=== PATIENT | male | born 1990 | race Caucasian/White ===

== ENCOUNTER 2016-11-12 08:17 | Observation (INO) | payer SELFPAY ==
[2016-11-12] MEDS ORDERED: Sodium Chloride 0.9% 1,000 ML IV ONE ×2 (08:29→09:34)
--- NOTE | 2016-11-12 08:53 | EDM.PDOC ---
ED HPI GENERAL MEDICAL PROBLEM - General Chief Complaint: Syncope Stated Complaint: Passing out Time Seen by Provider: 11/12/16 08:25 Source of Information: Reports: Patient History Limitations: Reports: No Limitations - History of Present Illness INITIAL COMMENTS - FREE TEXT/NARRATIVE: HISTORY AND PHYSICAL: History of present illness: This is a 26-year-old male presenting to the emergency room for the above- mentioned reason. As per the patient, the last 2 days now he has generally been feeling fatigued and dizzy. He tells me that it began yesterday when he would lose his balance after walking around and being on his feet for a long period of time. This morning in his hotel room he quickly got up out of his chair and passed out and fell on the floor. He is unaware of how long he was on the floor for. He does tell me that he did lose consciousness. He describes it as occurring suddenly. He denies any head trauma. He denies any current headaches. He does tell me that after the incident when he finally woke up he did initially feel confused. Currently he feels very dizzy and weak. He also tells him that he feels nauseous but he has not vomited. He denies having any cardiac or seizure history. He denies any history of diabetes. He has never had a similar incident in the past. Review of systems: As per history of present illness and below otherwise all systems reviewed and negative. Past medical history: No significant past medical history Surgical history: Tonsillectomy Social history: No reported history of drug or alcohol abuse. Family history: As per history of present illness and as reviewed below otherwise noncontributory. Physical exam: HEENT: Atraumatic, normocephalic, pupils reactive, negative for conjunctival pallor or scleral icterus, mucous membranes moist, throat clear, neck supple, nontender, trachea midline. Lungs: Clear to auscultation, breath sounds equal bilaterally, chest nontender. Heart: S1S2, regular, negative for clicks, rubs, or JVD. Abdomen: Soft, nondistended, nontender. Negative for masses or hepatosplenomegaly. Negative for costovertebral tenderness. Pelvis: Stable nontender. Genitourinary: Deferred. Rectal: Deferred. Extremities: Atraumatic, negative for cords or calf pain. Neurovascular unremarkable. Neuro: Awake, alert, oriented. Cranial nerves II through XII unremarkable. Cerebellum unremarkable. Motor and sensory unremarkable throughout. Exam nonfocal. Diagnostics: EKG CBC CMP Troponin CK-MB Orthostatic vital signs Chest x-ray Urinalysis Drug screen Head CT without contrast Therapeutics: IV normal saline bolus Impression: #1. Rhabdomyolysis Plan: Admit to observation with accepting physician Dr. Oneill. Definitive disposition and diagnosis as appropriate pending reevaluation and review of above. Headache Pain Score (Numeric/FACES): 5 - Related Data Allergies Allergy/AdvReac Type Severity Reaction Status Date / Time Penicillins Allergy Other Verified 11/12/16 08:27 Home Meds: Home Meds . [No Known Home Meds] 11/12/16 [History] Past Medical History - Past Health History Medical/Surgical History: Denies Medical/Surgical History Social & Family History - Tobacco Use Smoking Status *Q: Current Every Day Smoker Years of Tobacco use: 13 Packs/Tins Daily: 0.5 - Caffeine Use Caffeine Use: Reports: None - Recreational Drug Use Recreational Drug Use: No ED ROS GENERAL - Review of Systems Review Of Systems: See Below - Physical Exam Exam: See Below Course - Vital Signs Last Recorded V/S: Last Vital Signs Temp 36.1 C 11/12/16 08:29 Pulse 70 11/12/16 08:29 Resp 16 11/12/16 08:29 BP 129/76 11/12/16 08:29 Pulse Ox 97 11/12/16 08:29 Orthostatic Blood Pressure [ 138/78 Standing] Orthostatic Blood Pressure [ 137/87 Sitting] Orthostatic Blood Pressure [ 125/78 Supine] - Orders/Labs/Meds Orders: Active Orders 24 hr Category Date Time Status Admission Status [Patient Status] [ADT] Stat ADT 11/12/16 10:22 Ordered EKG 12 Lead [EKG Documentation Completion] [RC] STAT Care 11/12/16 08:45 Active Orthostatic Vital Signs [RC] ASDIRECTED Care 11/12/16 08:32 Active Head wo Cont [CT] Stat Exams 11/12/16 09:03 Taken DRUG SCREEN, URINE [URCHEM] Stat Lab 11/12/16 08:33 Uncollected UA W/MICROSCOPIC [URIN] Stat Lab 11/12/16 08:29 Uncollected Sodium Chloride 0.9% [Normal Saline] 1,000 ml Med 11/12/16 09:34 Active IV STAT Medication Orders Sodium Chloride (Normal Saline) 1,000 mls @ 999 mls/hr IV STAT ONE Stop: 11/12/16 10:34 Last Admin: 11/12/16 09:43 Dose: 999 mls/hr Labs: Laboratory Tests 11/12/16 11/12/16 11/12/16 Range/Units 08:20 08:20 08:20 WBC 7.59 (4.0-11.0) K/uL RBC 4.86 (4.50-5.90) M/uL Hgb 15.7 (13.0-17.0) g/dL Hct 44.4 (38.0-50.0) % MCV 91.4 (80.0-98.0) fL MCH 32.3 H (27.0-32.0) pg MCHC 35.4 (31.0-37.0) g/dL RDW Std Deviation 42.5 (28.0-62.0) fl RDW Coeff of Jagdish 13 (11.0-15.0) % Plt Count 210 (150-400) K/uL MPV 10.00 (7.40-12.00) fL Neut % (Auto) 42.3 L (48.0-80.0) % Lymph % (Auto) 35.7 (16.0-40.0) % Mcpherson % (Auto) 14.2 (0.0-15.0) % Eos % (Auto) 7.0 (0.0-7.0) % Baso % (Auto) 0.8 (0.0-1.5) % Neut # (Auto) 3.2 (1.4-5.7) K/uL Lymph # (Auto) 2.7 H (0.6-2.4) K/uL Mcpherson # (Auto) 1.1 H (0.0-0.8) K/uL Eos # (Auto) 0.5 (0.0-0.7) K/uL Baso # (Auto) 0.1 (0.0-0.1) K/uL Nucleated RBC % 0.0 /100WBC Nucleated RBCs # 0 K/uL Sodium 139 (136-146) mmol/L Potassium 4.0 (3.5-5.1) mmol/L Chloride 108 (98-110) mmol/L Carbon Dioxide 22 (21-31) mmol/L BUN 15 (6.0-23.0) mg/dL Creatinine 0.8 (0.6-1.5) mg/dL Est Cr Clr Drug Dosing 152.24 mL/min Estimated GFR (MDRD) > 60.0 ml/min Glucose 96 (60-110) mg/dL Calcium 9.0 (8.8-10.8) mg/dL Total Bilirubin 0.7 (0.1-1.5) mg/dL AST 32 (5-40) IU/L ALT 36 (8-54) IU/L Alkaline Phosphatase 69 (40-150) Creatine Kinase 327 H (9-236) IU/L CK-MB (CK-2) 5.6 (0-6.6) ng/ml Troponin I < 0.10 (0.0-0.29) NG/ML Total Protein 7.2 (6.0-8.0) g/dL Albumin 4.2 (3.5-5.0) g/dL Globulin 3.0 (2.0-3.5) g/dL Albumin/Globulin Ratio 1.4 (1.3-2.8) Meds: Medications Generic Name Dose Route Start Last Admin Trade Name Freq PRN Reason Stop Dose Admin Sodium Chloride 1,000 mls @ 999 mls/hr 11/12/16 09:34 11/12/16 09:43 Normal Saline IV 11/12/16 10:34 999 mls/hr STAT ONE Administration Discontinued Medications Generic Name Dose Route Start Last Admin Trade Name Freq PRN Reason Stop Dose Admin Sodium Chloride 1,000 mls @ 999 mls/hr 11/12/16 08:29 11/12/16 08:43 Normal Saline IV 11/12/16 09:29 999 mls/hr STAT ONE Administration Departure - Departure Time of Disposition: 10:25 Disposition: Refer to Observation Condition: Fair Clinical Impression: Rhabdomyolysis - Discharge Information Forms: ED Department Discharge - My Orders Last 24 Hours: My Active Orders 11/12/16 08:45 EKG 12 Lead [EKG Documentation Completion] [RC] STAT 11/12/16 09:03 Head wo Cont [CT] Stat 11/12/16 09:34 Sodium Chloride 0.9% [Normal Saline] 1,000 ml IV STAT 11/12/16 10:22 Admission Status [Patient Status] [ADT] Stat - Assessment/Plan Last 24 Hours: My Active Orders 11/12/16 08:45 EKG 12 Lead [EKG Documentation Completion] [RC] STAT 11/12/16 09:03 Head wo Cont [CT] Stat 11/12/16 09:34 Sodium Chloride 0.9% [Normal Saline] 1,000 ml IV STAT 11/12/16 10:22 Admission Status [Patient Status] [ADT] Stat
[2016-11-12 09:00] LABS: CHLORIDE,CL 108 mmol/L (98-110); SODIUM,NA 139 mmol/L (136-146)
--- NOTE | 2016-11-12 09:24 | CR ---
EXAM DATE: 11/12/16 PATIENT'S AGE: 26 Patient: KIMBERLY AYALA Facility: [place], [place] Site . Site : 1990 Study: XRay Chest [id number]/[id number] 9:17:34 AM Ordering Physician: Alvarez Brandt Final Report: INDICATION: Pain/shortness of breath. Dizziness. INDICATION: Pain. Shortness of breath. TECHNIQUE: Chest 1 view. COMPARISON: None FINDINGS: Cardiovascular and mediastinum: Heart size and vasculature are normal in caliber and appearance. Mediastinum is within normal limits. Lungs and pleural space: Lungs are clear. No sign of infiltrate or mass. No sign of pleural effusion. No pneumothorax. Bones and soft tissues: No significant findings. IMPRESSION: Unremarkable chest. Dictated by Pramod Nguyen MD @ 11/12/2016 9:21:44 AM Dictated by: Pramod Nguyen MD @ 11/12/2016 09:21:52 (Electronic Signature) Report Signed by Proxy. [facility]
[2016-11-12] MEDS: Sodium Chloride 0.9% 1,000 ML IV SCH ×3 (10:33→22:25)
--- NOTE | 2016-11-12 10:53 | CT ---
EXAM DATE: 11/12/16 PATIENT'S AGE: 26 Patient: KIMBERLY AYALA Facility: [place], [place] Site . Site : 1989 Study: CT Head [id number]/8/2017 9:36:55 AM Ordering Physician: Alvarez Brandt Final Report: INDICATION: dizziness INDICATION: Dizziness. TECHNIQUE: CT head without contrast. COMPARISON: None FINDINGS: CSF spaces: Within normal limits for age. Brain parenchyma: The jurado-white differentiation is normal. No sign of mass, hemorrhage, or midline shift. Skull base and calvarium: The mastoid air cells are clear. The visualized orbits are grossly unremarkable. No skull fractures. There is mucosal thickening present in the paranasal sinuses, best seen in the frontal sinus and ethmoidal air cells. IMPRESSION: There is no acute intracranial hemorrhage, shift of midline structures, or mass effect. Dictated by Pramod Nguyen MD @ 11/12/2016 10:08:00 AM Dictated by: Pramod Nguyen MD @ 11/12/2016 10:08:07 (Electronic Signature) Report Signed by Proxy. [facility]
[2016-11-12] MEDS ORDERED: Acetaminophen 325 MG Tab PO PRN (11:04)
[2016-11-12] MEDS ORDERED: Ondansetron 4 MG/2 ML SDV IVPUSH PRN (11:04)
--- NOTE | 2016-11-12 11:08 | PCM.HP ---
H&P History of Present Illness - General Date of Service: 11/12/16 Admit Problem/Dx: Admission Diagnosis/Problem Admission Diagnosis/Problem Dizziness, syncope Source of Information: Patient History Limitations: Reports: No Limitations - History of Present Illness Initial Comments - Free Text/Narative: This 26 year old otherwise healthy male presented to the ED today with concerns of dizziness, nausea and passing out. He reports yesterday he started feeling very dizzy when he would stand up or move his head. He reports the dizziness is much better when he lies still and doesn't move his head. It is worse when moving his head to the R. He confirms some sinus congestion and pressure, no sore throat, no ear pain, no hearing changes. No chest pain, palpitations, SOB, abdominal pain, urinary symptoms, or abnormal bowel movements. He does report he has not been drinking enough water due to demands of job and noted he only voided yesterday x2 and did not need to void this morning upon waking up. He does smoke 1/2 cigarettes per day, occasional alcohol use, and no recreational drug use. In the ED WBC 7,590, BMP WNL, CPK 327. Orthostatic BPs were WNL, but did have a BP measured at 97/52. Head CT negative. CXR negative. He was given 2 l bolus in the ED and IVFs continued to the floor. He will be admitted on observation for dehydration and suspected BPPV or an inner ear dysfunction secondary to sinusitis. Headache Pain Score (Numeric/FACES): 5 - Related Data Allergies/Adverse Reactions: Allergies Allergy/AdvReac Type Severity Reaction Status Date / Time Penicillins Allergy Other Verified 11/12/16 08:27 Home Medications: Home Meds . [No Known Home Meds] 11/12/16 [History] Past Medical History - Past Health History Medical/Surgical History: Denies Medical/Surgical History Cardiovascular History: Reports: None. Denies: Blood Clots/VTE/DVT, CAD, Hypertension, MD Respiratory History: Reports: None. Denies: Asthma, COPD, PE Gastrointestinal History: Reports: None. Denies: GERD, GI Bleed Genitourinary History: Reports: Renal Calculus. Denies: Acute Renal Failure, Chronic Renal Insuffiency Musculoskeletal History: Reports: None Endocrine/Metabolic History: Reports: None. Denies: Diabetes, Type II - Past Surgical History GI Surgical History: Reports: Appendectomy Male Surgical History: Reports: Vasectomy Social & Family History - Tobacco Use Smoking Status *Q: Current Every Day Smoker Years of Tobacco use: 13 Packs/Tins Daily: 0.5 - Caffeine Use Caffeine Use: Reports: None - Recreational Drug Use Recreational Drug Use: No - Living Situation & Occupation Living situation: Reports: Occupation: Employed Social History Comment: Family back in [place] but plan on moving up here H&P Review of Systems - Review of Systems: Review Of Systems: See Below General: Reports: No Symptoms. Denies: Fever, Chills, Weakness HEENT: Reports: Headaches, Post Nasal Drip, Sinus Congestion, Vertigo. Denies: Ear Pain, Eye Pain, Hearing Changes, Sore Throat Pulmonary: Reports: No Symptoms. Denies: Shortness of Breath Cardiovascular: Reports: No Symptoms. Denies: Chest Pain, Palpitations Gastrointestinal: Reports: Nausea. Denies: Abdominal Pain, Black Stool, Bloody Stool, Vomiting Genitourinary: Reports: No Symptoms. Denies: Dysuria, Frequency, Burning, Pain Musculoskeletal: Denies: Neck Pain, Shoulder Pain Skin: Reports: No Symptoms Psychiatric: Reports: No Symptoms Neurological: Reports: No Symptoms Hematologic/Lymphatic: Reports: No Symptoms Immunologic: Reports: No Symptoms Exam - Exam Exam: See Below - Vital Signs Vital Signs: Last Vital Signs Temp 96.8 F 11/12/16 10:45 Pulse 63 11/12/16 10:45 Resp 20 11/12/16 10:45 BP 97/52 L 11/12/16 10:45 Pulse Ox 97 11/12/16 10:45 Weight: 126.552 kg - Exam General: Alert, Oriented, Cooperative HEENT: Conjunctiva Clear, Mucosa Moist & [place], Nares Patent, Posterior Pharynx Clear, Pupils Equal, Pupils Reactive, TMs Clear, Other (some maxillary sinus pressure not necessarily pain to palpation. Nystagmus noted when head to R during Theo hallpike , scant dizziness to L but no nystagmus. Increased dizziness and nausea with R) Neck: Supple, Trachea Midline, Full Range of Motion, Other (no nuchal rigidity) . No: Lymphadenopathy Lungs: Clear to Auscultation, Normal Respiratory Effort Cardiovascular: Regular Rate, Regular Rhythm, Normal S1, Normal S2. No: Irregular Rhythm, Systolic Murmur GI/Abdominal Exam: Normal Bowel Sounds, Soft, Non-Tender, No Organomegaly, No Distention, No Abnormal Bruit, No Mass, Pelvis Stable Extremities: Normal Inspection, Normal Range of Motion, Non-Tender, No Pedal Edema, Normal Capillary Refill Skin: Warm, Dry, Intact Neuro Extensive - Mental Status: Alert, Oriented x3, Normal Mood/Affect, Normal Cognition Neuro Extensive - Motor, Sensory, Reflexes: CN II-XII Intact, Normal Gait, Normal Reflexes Psychiatric: Alert, Normal Affect, Normal Mood - Patient Data Result Diagrams: 11/12/16 08:20 11/12/16 08:20 *Q Meaningful Use (ADM) - VTE *Q VTE Criteria *Q: - Stroke *Q Stroke Criteria *Q: - AMI *Q AMI Criteria *Q: - Problem List (1) Dizziness SNOMED Code(s): 644695397, 151565343 ICD Code: R42 - DIZZINESS AND GIDDINESS Status: Acute Current Visit: Yes (2) Dehydration SNOMED Code(s): 12625412 ICD Code: E86.0 - DEHYDRATION Status: Acute Current Visit: Yes Problem List Initiated/Reviewed/Updated: Yes Orders Last 24hrs: Active Orders 24 hr Category Date Time Status Antiembolic Devices [RC] PER UNIT ROUTINE Care 11/12/16 11:05 Ordered Cardiac Monitoring [RC] . DIRECTED Care 11/12/16 11:04 Inactive Intake and Output [RC] QSHIFT Care 11/12/16 11:04 Ordered Oxygen Therapy [RC] PRN Care 11/12/16 11:04 Ordered Telemetry Monitoring [Cardiac Monitoring] [RC] . Care 11/12/16 11:07 Ordered DIRECTED Up ad Skye [RC] ASDIRECTED Care 11/12/16 11:04 Ordered VTE/DVT Education [RC] PER UNIT ROUTINE Care 11/12/16 11:04 Ordered Vital Signs [RC] Q4H Care 11/12/16 11:04 Ordered Regular Diet [DIET] Diet 11/12/16 Lunch Ordered BASIC METABOLIC PANEL,BMP [CHEM] AM Lab 11/13/16 05:11 Ordered BASIC METABOLIC PANEL,BMP [CHEM] AM Lab 11/14/16 05:11 Ordered BASIC METABOLIC PANEL,BMP [CHEM] AM Lab 11/15/16 05:11 Ordered CBC WITH AUTO DIFF [HEME] AM Lab 11/13/16 05:11 Ordered CBC WITH AUTO DIFF [HEME] AM Lab 11/14/16 05:11 Ordered CBC WITH AUTO DIFF [HEME] AM Lab 11/15/16 05:11 Ordered CREATINE KINASE,CK [CHEM] AM Lab 11/13/16 05:11 Ordered CREATINE KINASE,CK [CHEM] AM Lab 11/14/16 05:11 Ordered CREATINE KINASE,CK [CHEM] AM Lab 11/15/16 05:11 Ordered DRUG SCREEN, URINE [URCHEM] Stat Lab 11/12/16 11:04 Uncollected UA W/MICROSCOPIC [URIN] Stat Lab 11/12/16 11:04 Uncollected Acetaminophen [Tylenol] Med 11/12/16 11:04 Ordered 650 mg PO Q4H PRN Ondansetron [Zofran] Med 11/12/16 11:04 Ordered 4 mg IVPUSH Q4H PRN Sodium Chloride 0.9% [Normal Saline] 1,000 ml Med 11/12/16 10:30 Active IV STAT Sequential Compression Device [OM.PC] Per Unit Routine Oth 11/12/16 11:04 Ordered Resuscitation Status Routine Resus Stat 11/12/16 11:04 Ordered Medication Orders Acetaminophen (Tylenol) 650 mg PO Q4H PRN PRN Reason: Pain Sodium Chloride (Normal Saline) 1,000 mls @ 150 mls/hr IV STAT TAMMY Last Admin: 11/12/16 10:33 Dose: 150 mls/hr Ondansetron HCl (Zofran) 4 mg IVPUSH Q4H PRN PRN Reason: Nausea Assessment/Plan Comment:: This 26 year old female admitted observation for dehydration and dizziness 1. Dizziness: suspected BPPV or inner ear dysfunction secondary to allergic sinusitis. Will consult PT to evaluate and treat. Will order Loratidine and Flonase. Do no suspected bacterial sinusitis since he is afebrile and no leukocytosis. 2. Dehydration: secondary to new job and working in heat and he has not been able to take in adequate hydration during working hours. Will continue IVFs NS 150 at this time. re-evaluate this evening. Will repeat CPK in am, but I do no feel this is significant. VTE prophylaxis: SCDs Dispo: pending improvement in am.
[2016-11-12] MEDS: Fluticasone Propionate Nasal Spray 16 GM Bottle NASBOTH SCH (12:08)
[2016-11-12] MEDS: Loratadine 10 MG Tab PO SCH (12:08)
[2016-11-13 05:37] LABS: CHLORIDE,CL 110 mmol/L (98-110); SODIUM,NA 141 mmol/L (136-146)
[2016-11-13] MEDS: Sodium Chloride 0.9% 1,000 ML IV SCH (05:39)
--- NOTE | 2016-11-13 08:16 | PCM.PN ---
- General Info Date of Service: 11/13/16 Admission Dx/Problem (Free Text): Admission Diagnosis/Problem Admission Diagnosis/Problem Dizziness Subjective Update: Continues to have some dizziness, awaiting PT evaluation. The dizziness is worse when turning head to the R. No further headache. No neck pain. C/O some tingling to R fingers, but reports this is "normal" since he thinks he hurt his shoulder a couple years ago working in [employer] with a pick ax. No chest pain or SOB. Functional Status: Reports: Pain Controlled, Tolerating Diet, Ambulating, Urinating - Review of Systems General: Reports: No Symptoms. Denies: Fever, Malaise HEENT: Reports: Other (dizziness and nausea when head turned to R. Inability to ambulate well due to severe dizziness.). Denies: Ear Pain, Eye Pain, Headaches , Sore Throat, Visual Changes Pulmonary: Reports: No Symptoms. Denies: Shortness of Breath, Cough, Sputum Cardiovascular: Reports: No Symptoms. Denies: Chest Pain, Edema Gastrointestinal: Reports: Nausea (intermittent with dizziness). Denies: Abdominal Pain Genitourinary: Reports: No Symptoms. Denies: Dysuria, Frequency, Burning Musculoskeletal: Reports: No Symptoms. Denies: Neck Pain Skin: Reports: No Symptoms Neurological: Reports: No Symptoms Psychiatric: Reports: No Symptoms - Patient Data Vitals - Most Recent: Last Vital Signs Temp 97.7 F 11/13/16 07:47 Pulse 66 11/13/16 07:47 Resp 16 11/13/16 07:47 BP 110/58 L 11/13/16 07:47 Pulse Ox 97 11/13/16 07:47 Orthostatic Blood Pressure [ 138/61 Standing] Orthostatic Blood Pressure [ 121/64 Sitting] Orthostatic Blood Pressure [ 120/61 Supine] Weight - Most Recent: 126.552 kg I&O - Last 24 Hours: Intake & Output 11/12/16 11/13/16 11/13/16 22:59 06:59 14:59 Intake Total 2074 1099 Output Total 0 2830 Balance 2074 -1731 Lab Results Last 24 Hours: Laboratory Results - last 24 hr 11/12/16 11/12/16 11/13/16 Range/Units 12:00 12:00 04:58 WBC 7.21 (4.0-11.0) K/uL RBC 4.71 (4.50-5.90) M/uL Hgb 14.8 (13.0-17.0) g/dL Hct 43.7 (38.0-50.0) % MCV 92.8 (80.0-98.0) fL MCH 31.4 (27.0-32.0) pg MCHC 33.9 (31.0-37.0) g/dL RDW Std Deviation 42.5 (28.0-62.0) fl RDW Coeff of Jagdish 13 (11.0-15.0) % Plt Count 189 (150-400) K/uL MPV 9.90 (7.40-12.00) fL Neut % (Auto) 45.1 L (48.0-80.0) % Lymph % (Auto) 36.1 (16.0-40.0) % Walsh % (Auto) 11.2 (0.0-15.0) % Eos % (Auto) 6.8 (0.0-7.0) % Baso % (Auto) 0.8 (0.0-1.5) % Neut # (Auto) 3.3 (1.4-5.7) K/uL Lymph # (Auto) 2.6 H (0.6-2.4) K/uL Walsh # (Auto) 0.8 (0.0-0.8) K/uL Eos # (Auto) 0.5 (0.0-0.7) K/uL Baso # (Auto) 0.1 (0.0-0.1) K/uL Nucleated RBC % 0.0 /100WBC Nucleated RBCs # 0 K/uL Sodium (136-146) mmol/L Potassium (3.5-5.1) mmol/L Chloride (98-110) mmol/L Carbon Dioxide (21-31) mmol/L BUN (6.0-23.0) mg/dL Creatinine (0.6-1.5) mg/dL Est Cr Clr Drug Dosing mL/min Estimated GFR (MDRD) ml/min Glucose (60-110) mg/dL Calcium (8.8-10.8) mg/dL Creatine Kinase (9-236) IU/L Urine Color YELLOW Urine Appearance CLEAR Urine pH 6.5 (5.0-8.0) Ur Specific [place] 1.010 (1.001-1.035) Urine Protein NEGATIVE (NEGATIVE) mg/dL Urine Glucose (UA) NEGATIVE (NEGATIVE) mg/dL Urine Ketones NEGATIVE (NEGATIVE) mg/dL Urine Occult Blood NEGATIVE (NEGATIVE) Urine Nitrite NEGATIVE (NEGATIVE) Urine Bilirubin NEGATIVE (NEGATIVE) Urine Urobilinogen 0.2 (<2.0) EU/dL Ur Leukocyte Esterase NEGATIVE (NEGATIVE) Urine RBC NONE SEEN (0-2/HPF) Urine WBC 0-1 (0-5/HPF) Ur Epithelial Cells RARE (NONE-FEW) Urine Bacteria RARE (NEGATIVE) Urine Opiates Screen NEGATIVE (NEGATIVE) Ur Oxycodone Screen NEGATIVE (NEGATIVE) Urine Methadone Screen NEGATIVE (NEGATIVE) Ur Barbiturates Screen NEGATIVE (NEGATIVE) Ur Phencyclidine Scrn NEGATIVE (NEGATIVE) Ur Amphetamine Screen NEGATIVE (NEGATIVE) U Methamphetamines Scrn NEGATIVE (NEGATIVE) U Benzodiazepines Scrn NEGATIVE (NEGATIVE) U Cocaine Metab Screen NEGATIVE (NEGATIVE) U Marijuana (THC) Screen NEGATIVE (NEGATIVE) 11/13/16 Range/Units 04:58 WBC (4.0-11.0) K/uL RBC (4.50-5.90) M/uL Hgb (13.0-17.0) g/dL Hct (38.0-50.0) % MCV (80.0-98.0) fL MCH (27.0-32.0) pg MCHC (31.0-37.0) g/dL RDW Std Deviation (28.0-62.0) fl RDW Coeff of Jagdish (11.0-15.0) % Plt Count (150-400) K/uL MPV (7.40-12.00) fL Neut % (Auto) (48.0-80.0) % Lymph % (Auto) (16.0-40.0) % Walsh % (Auto) (0.0-15.0) % Eos % (Auto) (0.0-7.0) % Baso % (Auto) (0.0-1.5) % Neut # (Auto) (1.4-5.7) K/uL Lymph # (Auto) (0.6-2.4) K/uL Walsh # (Auto) (0.0-0.8) K/uL Eos # (Auto) (0.0-0.7) K/uL Baso # (Auto) (0.0-0.1) K/uL Nucleated RBC % /100WBC Nucleated RBCs # K/uL Sodium 141 (136-146) mmol/L Potassium 4.3 (3.5-5.1) mmol/L Chloride 110 (98-110) mmol/L Carbon Dioxide 26 (21-31) mmol/L BUN 12 (6.0-23.0) mg/dL Creatinine 0.8 (0.6-1.5) mg/dL Est Cr Clr Drug Dosing 156.75 mL/min Estimated GFR (MDRD) > 60.0 ml/min Glucose 95 (60-110) mg/dL Calcium 8.9 (8.8-10.8) mg/dL Creatine Kinase 163 (9-236) IU/L Urine Color Urine Appearance Urine pH (5.0-8.0) Ur Specific [place] (1.001-1.035) Urine Protein (NEGATIVE) mg/dL Urine Glucose (UA) (NEGATIVE) mg/dL Urine Ketones (NEGATIVE) mg/dL Urine Occult Blood (NEGATIVE) Urine Nitrite (NEGATIVE) Urine Bilirubin (NEGATIVE) Urine Urobilinogen (<2.0) EU/dL Ur Leukocyte Esterase (NEGATIVE) Urine RBC (0-2/HPF) Urine WBC (0-5/HPF) Ur Epithelial Cells (NONE-FEW) Urine Bacteria (NEGATIVE) Urine Opiates Screen (NEGATIVE) Ur Oxycodone Screen (NEGATIVE) Urine Methadone Screen (NEGATIVE) Ur Barbiturates Screen (NEGATIVE) Ur Phencyclidine Scrn (NEGATIVE) Ur Amphetamine Screen (NEGATIVE) U Methamphetamines Scrn (NEGATIVE) U Benzodiazepines Scrn (NEGATIVE) U Cocaine Metab Screen (NEGATIVE) U Marijuana (THC) Screen (NEGATIVE) Med Orders - Current: Current Medications Acetaminophen (Tylenol) 650 mg PO Q4H PRN PRN Reason: Pain Last Admin: 11/12/16 11:18 Dose: 650 mg Fluticasone Propionate (Flonase) 0 gm NASBOTH DAILY [facility] Last Admin: 11/12/16 12:08 Dose: 1 spray Sodium Chloride (Normal Saline) 1,000 mls @ 150 mls/hr IV STAT TAMMY Last Admin: 11/13/16 05:39 Dose: 150 mls/hr Loratadine (Claritin) 10 mg PO DAILY TAMMY Last Admin: 11/12/16 12:08 Dose: 10 mg Ondansetron HCl (Zofran) 4 mg IVPUSH Q4H PRN PRN Reason: Nausea Discontinued Medications Sodium Chloride (Normal Saline) 1,000 mls @ 999 mls/hr IV STAT ONE Stop: 11/12/16 09:29 Last Admin: 11/12/16 08:43 Dose: 999 mls/hr Sodium Chloride (Normal Saline) 1,000 mls @ 999 mls/hr IV STAT ONE Stop: 11/12/16 10:34 Last Admin: 11/12/16 09:43 Dose: 999 mls/hr - Exam General: Alert, Oriented, Cooperative, No Acute Distress HEENT: Pupils Equal, Pupils Reactive, Other (holds head very still and with any movement to right gets very dizzy) Neck: Supple, Trachea Midline, No JVD. No: Lymphadenopathy Lungs: Clear to Auscultation, Normal Respiratory Effort Cardiovascular: Regular Rate, Regular Rhythm Extremities: Normal Inspection, Normal Range of Motion, Non-Tender, No Pedal Edema, Normal Capillary Refill Neurological: No New Focal Deficit Psy/Mental Status: Alert, Normal Affect, Normal Mood - Problem List & Annotations (1) Dizziness SNOMED Code(s): 259763560, 755884245 Code(s): R42 - DIZZINESS AND GIDDINESS Status: Acute Current Visit: Yes (2) Dehydration SNOMED Code(s): 32720214 Code(s): E86.0 - DEHYDRATION Status: Acute Current Visit: Yes - Problem List Review Problem List Initiated/Reviewed/Updated: Yes - My Orders Last 24 Hours: My Active Orders 11/12/16 11:04 Cardiac Monitoring [RC] . DIRECTED Intake and Output [RC] QSHIFT Oxygen Therapy [RC] PRN Up ad Skye [RC] ASDIRECTED Vital Signs [RC] Q4H Acetaminophen [Tylenol] 650 mg PO Q4H PRN Ondansetron [Zofran] 4 mg IVPUSH Q4H PRN Sequential Compression Device [OM.PC] Per Unit Routine Resuscitation Status Routine 11/12/16 11:05 Antiembolic Devices [RC] Q12H 11/12/16 11:07 Telemetry Monitoring [Cardiac Monitoring] [RC] Q8H 11/12/16 11:36 Consult to Physical Therapy [PT Evaluation and Treatment] [CONS] Routine 11/12/16 11:45 Fluticasone Propionate [Flonase] 0 gm NASBOTH DAILY Loratadine [Claritin] 10 mg PO DAILY 11/12/16 Lunch Regular Diet [DIET] 11/14/16 05:11 BASIC METABOLIC PANEL,BMP [CHEM] AM CBC WITH AUTO DIFF [HEME] AM CREATINE KINASE,CK [CHEM] AM 11/15/16 05:11 BASIC METABOLIC PANEL,BMP [CHEM] AM CBC WITH AUTO DIFF [HEME] AM CREATINE KINASE,CK [CHEM] AM - Plan Plan:: This 26 year old female admitted observation for dehydration and dizziness 1. Dizziness: suspected BPPV or inner ear dysfunction secondary to allergic sinusitis. Still awaiting PT to evaluate and treat. Continue Loratidine and Flonase. If no significant improvement after PT evaluation and treatment, will obtain brain MRI. 2. Dehydration: Resolved. Will stop IVFs today. Encourage good po intake. VTE prophylaxis: SCDs Dispo: pending PT evaluation.
[2016-11-13] MEDS: Fluticasone Propionate Nasal Spray 16 GM Bottle NASBOTH SCH (09:18)
[2016-11-13] MEDS: Loratadine 10 MG Tab PO SCH (09:18)
[2016-11-13] MEDS: Meclizine 25 MG Tab PO PRN (20:23)
[2016-11-14 05:23] LABS: CHLORIDE,CL 109 mmol/L (98-110); SODIUM,NA 140 mmol/L (136-146)
[2016-11-14] MEDS: Fluticasone Propionate Nasal Spray 16 GM Bottle NASBOTH SCH (08:16)
[2016-11-14] MEDS: Loratadine 10 MG Tab PO SCH (08:16)
[2016-11-14] MEDS: Meclizine 25 MG Tab PO PRN (10:42)
--- NOTE | 2016-11-14 11:11 | PCM.PN ---
- General Info Date of Service: 11/14/16 Admission Dx/Problem (Free Text): Admission Diagnosis/Problem Admission Diagnosis/Problem Dizziness Subjective Update: Doing a little better this morning. Dizziness continues when turning head to the R, has improved very slightly with PT. Denies any other symptoms, no tinnitus, or hearing loss. No chest pain or SOB. Functional Status: Reports: Pain Controlled, Tolerating Diet, Ambulating, Urinating - Review of Systems General: Reports: No Symptoms. Denies: Fever, Weakness, Fatigue HEENT: Reports: Sinus Congestion (mild). Denies: Ear Pain, Headaches, Rhinitis , Visual Changes Pulmonary: Reports: No Symptoms. Denies: Shortness of Breath Cardiovascular: Denies: No Symptoms, Chest Pain Gastrointestinal: Reports: No Symptoms. Denies: Abdominal Pain, Nausea, Vomiting Genitourinary: Reports: No Symptoms. Denies: Dysuria, Frequency, Burning Musculoskeletal: Reports: No Symptoms Skin: Reports: No Symptoms Neurological: Reports: No Symptoms Psychiatric: Reports: No Symptoms - Patient Data Vitals - Most Recent: Last Vital Signs Temp 97.4 F 11/14/16 08:00 Pulse 51 L 11/14/16 04:00 Resp 20 11/14/16 08:00 BP 100/51 L 11/14/16 08:00 Pulse Ox 97 11/14/16 08:00 Orthostatic Blood Pressure [ 128/78 Standing] Orthostatic Blood Pressure [ 114/69 Sitting] Orthostatic Blood Pressure [ 108/70 Supine] Weight - Most Recent: 126.552 kg I&O - Last 24 Hours: Intake & Output 11/13/16 11/14/16 11/14/16 22:59 06:59 14:59 Intake Total 1300 400 Output Total 2050 1600 Balance -750 -1200 Lab Results Last 24 Hours: Laboratory Results - last 24 hr 11/14/16 11/14/16 Range/Units 04:45 04:45 WBC 7.95 (4.0-11.0) K/uL RBC 4.91 (4.50-5.90) M/uL Hgb 15.8 (13.0-17.0) g/dL Hct 45.2 (38.0-50.0) % MCV 92.1 (80.0-98.0) fL MCH 32.2 H (27.0-32.0) pg MCHC 35.0 (31.0-37.0) g/dL RDW Std Deviation 42.3 (28.0-62.0) fl RDW Coeff of Jagdish 13 (11.0-15.0) % Plt Count 201 (150-400) K/uL MPV 10.10 (7.40-12.00) fL Neut % (Auto) 42.2 L (48.0-80.0) % Lymph % (Auto) 40.5 H (16.0-40.0) % [place] % (Auto) 11.1 (0.0-15.0) % Eos % (Auto) 5.4 (0.0-7.0) % Baso % (Auto) 0.8 (0.0-1.5) % Neut # (Auto) 3.4 (1.4-5.7) K/uL Lymph # (Auto) 3.2 H (0.6-2.4) K/uL [place] # (Auto) 0.9 H (0.0-0.8) K/uL Eos # (Auto) 0.4 (0.0-0.7) K/uL Baso # (Auto) 0.1 (0.0-0.1) K/uL Nucleated RBC % 0.0 /100WBC Nucleated RBCs # 0 K/uL Sodium 140 (136-146) mmol/L Potassium 4.5 (3.5-5.1) mmol/L Chloride 109 (98-110) mmol/L Carbon Dioxide 23 (21-31) mmol/L BUN 17 (6.0-23.0) mg/dL Creatinine 0.8 (0.6-1.5) mg/dL Est Cr Clr Drug Dosing 156.75 mL/min Estimated GFR (MDRD) > 60.0 ml/min Glucose 91 (60-110) mg/dL Calcium 9.2 (8.8-10.8) mg/dL Med Orders - Current: Current Medications Acetaminophen (Tylenol) 650 mg PO Q4H PRN PRN Reason: Pain Last Admin: 11/12/16 11:18 Dose: 650 mg Fluticasone Propionate (Flonase) 0 gm NASBOTH DAILY [facility] Last Admin: 11/14/16 08:16 Dose: 2 spray Loratadine (Claritin) 10 mg PO DAILY [facility] Last Admin: 11/14/16 08:16 Dose: 10 mg Meclizine HCl (Antivert) 25 mg PO Q6H PRN PRN Reason: Dizziness Last Admin: 11/14/16 10:42 Dose: 25 mg Ondansetron HCl (Zofran) 4 mg IVPUSH Q4H PRN PRN Reason: Nausea Discontinued Medications Sodium Chloride (Normal Saline) 1,000 mls @ 999 mls/hr IV STAT ONE Stop: 11/12/16 09:29 Last Admin: 11/12/16 08:43 Dose: 999 mls/hr Sodium Chloride (Normal Saline) 1,000 mls @ 999 mls/hr IV STAT ONE Stop: 11/12/16 10:34 Last Admin: 11/12/16 09:43 Dose: 999 mls/hr Sodium Chloride (Normal Saline) 1,000 mls @ 150 mls/hr IV STAT [facility] Last Admin: 11/13/16 05:39 Dose: 150 mls/hr - Exam General: Alert, Oriented, Cooperative, No Acute Distress HEENT: Pupils Equal, Pupils Reactive Neck: Supple, Trachea Midline Lungs: Clear to Auscultation, Normal Respiratory Effort Cardiovascular: Regular Rate, Regular Rhythm GI/Abdominal Exam: Normal Bowel Sounds, Soft, Non-Tender, No Organomegaly, No Distention, No Abnormal Bruit, No Mass, Pelvis Stable Extremities: Normal Inspection, Normal Range of Motion, Non-Tender, No Pedal Edema, Normal Capillary Refill Skin: Warm, Dry, Intact Neurological: No New Focal Deficit Psy/Mental Status: Alert, Normal Affect, Normal Mood - Problem List & Annotations (1) Dizziness SNOMED Code(s): 480967888, 866460376 Code(s): R42 - DIZZINESS AND GIDDINESS Status: Acute Current Visit: Yes (2) Dehydration SNOMED Code(s): 20659467 Code(s): E86.0 - DEHYDRATION Status: Acute Current Visit: Yes - Problem List Review Problem List Initiated/Reviewed/Updated: Yes - My Orders Last 24 Hours: My Active Orders 11/13/16 15:03 Communication Order [RC] PRN Meclizine [Antivert] 25 mg PO Q6H PRN 11/15/16 05:11 BASIC METABOLIC PANEL,BMP [CHEM] AM CBC WITH AUTO DIFF [HEME] AM - Plan Plan:: This 26 year old female admitted observation for dehydration and dizziness 1. Dizziness: Likely vestibular neuritis. Continue Loratidine and Flonase. Small improvement with PT and bhavna maneuver. Meclizine ordered PRN. Will trial this and monitor effectiveness. Consulted Neurology,Dr. Mccollum for any further recommendations, she recommends addition of steroids and taper. Along with continuing PT. VTE prophylaxis: SCDs Dispo: pending Neurology consult, likely discharge in am.
[2016-11-14] MEDS: predniSONE 20 MG Tab PO SCH (12:27)
[2016-11-14] MEDS: Omeprazole 20 MG Cap.CR PO SCH (12:27)
[2016-11-14] MEDS: Meclizine 25 MG Tab PO SCH ×2 (17:39→22:13)
[2016-11-15] MEDS: Meclizine 25 MG Tab PO SCH ×2 (04:48→12:46)
[2016-11-15 05:28] LABS: CHLORIDE,CL 108 mmol/L (98-110); SODIUM,NA 140 mmol/L (136-146)
[2016-11-15 07:56] VITALS: BP 117/61
[2016-11-15] MEDS: predniSONE 20 MG Tab PO SCH (08:37)
[2016-11-15] MEDS: Loratadine 10 MG Tab PO SCH (08:37)
[2016-11-15] MEDS: Omeprazole 20 MG Cap.CR PO SCH (08:37)
[2016-11-15] MEDS: Fluticasone Propionate Nasal Spray 16 GM Bottle NASBOTH SCH (08:38)
--- NOTE | 2016-11-15 09:34 | PCM.DCSUM1 ---
Discharge Summary - Hospital Course Brief History: This 26 year old otherwise healthy male presented to the ED 2016 with concerns of dizziness, nausea and passing out. He reports yesterday he started feeling very dizzy when he would stand up or move his head. He reports the dizziness is much better when he lies still and doesn't move his head. It is worse when moving his head to the R. He confirms some sinus congestion and pressure, no sore throat, no ear pain, no hearing changes. No chest pain, palpitations, SOB, abdominal pain, urinary symptoms, or abnormal bowel movements. He does report he has not been drinking enough water due to demands of job and noted he only voided yesterday x2 and did not need to void this morning upon waking up. He does smoke 1/2 cigarettes per day, occasional alcohol use, and no recreational drug use. In the ED WBC 7,590, BMP WNL, CPK 327. Orthostatic BPs were WNL, but did have a BP measured at 97/52. Head CT negative. CXR negative. He was given 2 l bolus in the ED and IVFs continued to the floor. He was admitted for observation for dehydration and suspected BPPV or an inner ear dysfunction. - Discharge Data Discharge Date: 11/15/16 Discharge Disposition: Home, Self-Care 01 Condition: Good - Discharge Diagnosis/Problem(s) (1) Dizziness SNOMED Code(s): 965984777, 368360183 ICD Code: R42 - DIZZINESS AND GIDDINESS Status: Acute Current Visit: Yes (2) Vestibular neuritis SNOMED Code(s): 613840359 ICD Code: H81.20 - VESTIBULAR NEURONITIS, UNSPECIFIED EAR Status: Acute Current Visit: Yes Qualifiers: Laterality: right Qualified Code(s): H81.21 - Vestibular neuronitis, right ear (3) Dehydration SNOMED Code(s): 46971875 ICD Code: E86.0 - DEHYDRATION Status: Resolved Current Visit: Yes - Patient Summary/Data Consults: Consultations 11/12/16 11:36 Consult to Physical Therapy [PT Evaluation and Treatment] [CONS] Routine - Patient Instructions Diet: Usual Diet as Tolerated Activity: No Strenuous Activities Activity, Other: Work release provided Driving: Do Not Drive Showering/Bathing: May Shower Notify Provider of: Fever, Increased Pain, Swelling and Redness, Drainage, Nausea and/or Vomiting - Discharge Plan Prescriptions/Med Rec: Fluticasone Propionate [Flonase] 0 gm NASBOTH DAILY #1 bottle Loratadine [Claritin] 10 mg PO DAILY #30 tablet Meclizine [Antivert] 25 mg PO Q6H PRN #45 tablet PRN Reason: Vertigo Omeprazole 20 mg PO DAILY #15 cap.cr Prednisone [IJD: predniSONE] 10 - 60 mg PO WITHBREAKFAST #16 tablet Home Medications: Home Meds Fluticasone Propionate [Flonase] 0 gm NASBOTH DAILY #1 bottle 11/15/16 [Rx] Loratadine [Claritin] 10 mg PO DAILY #30 tablet 11/15/16 [Rx] Meclizine [Antivert] 25 mg PO Q6H PRN #45 tablet 11/15/16 [Rx] Omeprazole 20 mg PO DAILY #15 cap.cr 11/15/16 [Rx] Prednisone [IJD: predniSONE] 10 - 60 mg PO WITHBREAKFAST #16 tablet 11/15/16 [Rx ] - Discharge Summary/Plan Comment DC Time >30 min.: No Discharge Summary/Plan Comment: Discharge Diagnoses: Vestibular neuritis Dehydration - resolved Jurgen was admitted and treated for vertigo, likely vestibular neuritis. He was treated with Meclizine and started on Prednisone after phone consultation with Dr. Mccollum. He has also been treated and evaluated by PT. He has slowly improved and is ready for discharge today. The vertigo is iproved, but deliberate, slow movements are needed to limit the amount of vertigo. He will not be released back to work until Friday and he will only be able to do light duty and no driving until cleared by PCP. I will send him home with Meclizine, Prednisone, Flonase, Loratidine, and Prilosec. He will be discharged home and will follow up with PT on Friday and Dr. Guerin on . He is to return to ED or clinic if concerns should arise. - General Info Date of Service: 11/15/16 Admission Dx/Problem (Free Text: Admission Diagnosis/Problem Admission Diagnosis/Problem Dizziness Subjective Update: Doing well this morning. Still having some dizziness with quick movements. Knows more now he needs to be very deliberate in movements and change position slowly. No other symptoms and no chest pain or SOB. Would like to be discharged today. Functional Status: Reports: Pain Controlled, Tolerating Diet, Ambulating, Urinating - Review of Systems General: Reports: No Symptoms. Denies: Fever Pulmonary: Reports: No Symptoms. Denies: Shortness of Breath Cardiovascular: Reports: No Symptoms. Denies: Chest Pain, Palpitations Gastrointestinal: Reports: No Symptoms. Denies: Abdominal Pain, Nausea, Vomiting Genitourinary: Reports: No Symptoms. Denies: Dysuria, Frequency, Burning Musculoskeletal: Reports: No Symptoms. Denies: Neck Pain Skin: Reports: No Symptoms Neurological: Reports: No Symptoms Psychiatric: Reports: No Symptoms - Patient Data Vitals - Most Recent: Last Vital Signs Temp 97.8 F 11/15/16 07:55 Pulse 61 11/15/16 07:55 Resp 20 11/15/16 07:55 BP 117/61 11/15/16 07:55 Pulse Ox 97 11/15/16 07:55 Orthostatic Blood Pressure [ 128/78 Standing] Orthostatic Blood Pressure [ 114/69 Sitting] Orthostatic Blood Pressure [ 108/70 Supine] Weight - Most Recent: 126.552 kg I&O - Last 24 hours: Intake & Output 11/14/16 11/15/16 11/15/16 22:59 06:59 14:59 Intake Total 818 900 Output Total 1250 600 Balance -432 300 Lab Results - Last 24 hrs: Laboratory Results - last 24 hr 11/15/16 11/15/16 Range/Units 04:54 04:54 WBC 16.17 H (4.0-11.0) K/uL RBC 4.93 (4.50-5.90) M/uL Hgb 15.8 (13.0-17.0) g/dL Hct 44.7 (38.0-50.0) % MCV 90.7 (80.0-98.0) fL MCH 32.0 (27.0-32.0) pg MCHC 35.3 (31.0-37.0) g/dL RDW Std Deviation 41.2 (28.0-62.0) fl RDW Coeff of Jagdish 13 (11.0-15.0) % Plt Count 225 (150-400) K/uL MPV 9.90 (7.40-12.00) fL Neut % (Auto) 68.0 (48.0-80.0) % Lymph % (Auto) 20.9 (16.0-40.0) % [place] % (Auto) 10.0 (0.0-15.0) % Eos % (Auto) 1.0 (0.0-7.0) % Baso % (Auto) 0.1 (0.0-1.5) % Neut # (Auto) 11.0 H (1.4-5.7) K/uL Lymph # (Auto) 3.4 H (0.6-2.4) K/uL Becker # (Auto) 1.6 H (0.0-0.8) K/uL Eos # (Auto) 0.2 (0.0-0.7) K/uL Baso # (Auto) 0.0 (0.0-0.1) K/uL Nucleated RBC % 0.0 /100WBC Nucleated RBCs # 0 K/uL Sodium 140 (136-146) mmol/L Potassium 4.1 (3.5-5.1) mmol/L Chloride 108 (98-110) mmol/L Carbon Dioxide 25 (21-31) mmol/L BUN 19 (6.0-23.0) mg/dL Creatinine 0.8 (0.6-1.5) mg/dL Est Cr Clr Drug Dosing 156.75 mL/min Estimated GFR (MDRD) > 60.0 ml/min Glucose 111 H (60-110) mg/dL Calcium 9.3 (8.8-10.8) mg/dL Med Orders - Current: Current Medications Acetaminophen (Tylenol) 650 mg PO Q4H PRN PRN Reason: Pain Last Admin: 11/12/16 11:18 Dose: 650 mg Fluticasone Propionate (Flonase) 0 gm NASBOTH DAILY [facility] Last Admin: 11/15/16 08:38 Dose: 1 spray Loratadine (Claritin) 10 mg PO DAILY [facility] Last Admin: 11/15/16 08:37 Dose: 10 mg Meclizine HCl (Antivert) 25 mg PO Q6H [facility] Last Admin: 11/15/16 04:48 Dose: 25 mg Omeprazole (Omeprazole) 20 mg PO DAILY [facility] Last Admin: 11/15/16 08:37 Dose: 20 mg Ondansetron HCl (Zofran) 4 mg IVPUSH Q4H PRN PRN Reason: Nausea Prednisone (Prednisone) 60 mg PO WITHBREAKFAST [facility] Last Admin: 11/15/16 08:37 Dose: 60 mg Discontinued Medications Sodium Chloride (Normal Saline) 1,000 mls @ 999 mls/hr IV STAT ONE Stop: 11/12/16 09:29 Last Admin: 11/12/16 08:43 Dose: 999 mls/hr Sodium Chloride (Normal Saline) 1,000 mls @ 999 mls/hr IV STAT ONE Stop: 11/12/16 10:34 Last Admin: 11/12/16 09:43 Dose: 999 mls/hr Sodium Chloride (Normal Saline) 1,000 mls @ 150 mls/hr IV STAT TAMMY Last Admin: 11/13/16 05:39 Dose: 150 mls/hr Meclizine HCl (Antivert) 25 mg PO Q6H PRN PRN Reason: Dizziness Last Admin: 11/14/16 10:42 Dose: 25 mg - Exam General: Reports: Alert, Oriented, Cooperative, No Acute Distress HEENT: Reports: Pupils Equal, Pupils Reactive, EOMI, Mucous Membr. Moist/Reform Neck: Reports: Supple Lungs: Reports: Clear to Auscultation, Normal Respiratory Effort Cardiovascular: Reports: Regular Rate, Regular Rhythm Extremities: Normal Inspection, Normal Range of Motion, Non-Tender, No Pedal Edema, Normal Capillary Refill Skin: Reports: Warm, Dry, Intact Wound/Incisions: Reports: Healing Well Neurological: Reports: No New Focal Deficit Psy/Mental Status: Reports: Alert, Normal Affect, Normal Mood *Q Meaningful Use (DIS) - VTE *Q VTE Criteria *Q: - Stroke *Q Stroke Criteria *Q: - AMI *Q AMI Criteria *Q:
== END 2016-11-15 11:57 | disposition home or self-care (01) ==
LOC: MW.ED 08:17 → MW.MS 10:22
PROVIDERS: ADMIT Internal Medicine; ATTEND Internal Medicine
DX: R42 Dizziness and giddiness (principal); E86.0 Dehydration; R55 Syncope and collapse; F17.210 Nicotine dependence, cigarettes, uncomplicated; Z88.0 Allergy status to penicillin; Z87.442 Personal history of urinary calculi; Z98.52 Vasectomy status; Z90.49 Acquired absence of other specified parts of digestive tract
CPT/HCPCS: 36415; 70450; 71010; 80048; 80053; 80305; 81001; 82550; 82553; 84484; 85025; 93005; 95992; 96360; 96361; 97110; 97161; 97530; 99285; A9270; G0378; J7040